=== PATIENT | male | born 1965 | race Caucasian/White ===

== ENCOUNTER 2017-11-14 13:59 | Outpatient (CLI) ==
--- NOTE | 2017-11-14 14:47 | CT ---
EXAM: Noncontrast CT head. HISTORY: Contusion of the scalp. COMPARISON: None available at the time of dictation. TECHNIQUE: Noncontrast CT head was performed with axial coronal and sagittal reconstructions. Findings: There is a hypodensity seen within the posterior right cerebellum suggestive of a previous cerebellar infarct site. There is preservation of the mejia-white differential without evidence of definitive large vessel acut e cortical infarct identified. No acute intracranial hemorrhage is identified. No midline shift is i dentified. No definitive intracranial mass lesion is identified within technical limitations of nonco ntrast CT. Bilateral white matter hypodensities are present. The basal cisterns are patent. The joseline tricles are normal in size and configuration. Limited evaluation of the skull demonstrates no visual ized lucent skull acute fractures or destructive osseous lesions identified within the visualized por tions of the skull. Partially visualized paranasal sinuses and mastoid air cells appear relatively c lear in the visualized regions. Impression: 1. No acute intracranial hemorrhage or definitive large vessel acute cortical infarct identified. 2. Bilateral white matter hypodensities present which are not specific but can be seen with chronic microvascular ischemic disease. 3. 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
--- NOTE | 2017-11-14 14:49 | CT ---
EXAM: CT cervical spine without contrast. HISTORY: Right arm pain COMPARISON: Same day CT head TECHNIQUE: Serial axial images of the cervical spine were obtained from the skull base through the l [place] apices without contrast. These were viewed in multiple planes. FINDINGS: Vertebral bodies demonstrate normal height, disc space and alignment. There is straighten ing of the cervical spine. There is an anterior disc osteophyte at C5-C6. There is mild facet arthr opathy. Posterior processes are normal. The odontoid process is unremarkable. C1 ring is intact. There is no lytic or blastic lesion. Limited views of the soft tissues are unremarkable. IMPRESSION: 1. No acute abnormality or compression fracture of the cervical spine. 2. Mild scattered degenerative disease throughout the cervical spine.
--- NOTE | 2017-11-14 15:15 | CT ---
EXAM: CT LUMBAR SPINE HISTORY: Lower back pain TECHNIQUE: CT lumbar spine without contrast. 3-mm axial sections. Coronal and sagittal reformation s. COMPARISON: None FINDINGS: General bone density appears slightly decreased. The patient has underwent previous interbody fusion hardware placement at L5/S1 with disc space fusion and decompressive laminectomy. The hardware appea rs intact with no obvious dislodgement or loosening. There is no spondylolisthesis or loss of verteb ral body height. No acute fracture is seen. There is no scoliosis. Mild to moderate bilateral josee articular sclerosis of the sacroiliac joints consistent with sacroiliitis. Pedicles appear congenita lly short. There is diffuse facet arthropathy, degenerative disc disease and ligamentum hypertrophy. These findings lead to multilevel central canal stenosis. This central stenosis is most apparent at C2/C3 and C3/C4 where there is probable moderate central canal stenosis. The central canal at L4/L5 is difficult to see secondary to artifact. There is bony spurring at this C4/C5 level which probabl y narrows the neural foramina. Correlation with MRI can be made if indicated. There is no paraspina l fluid collection seen. IMPRESSION: Postop changes of the lower spine as described. No acute fracture or spondylolisthesis. Multilevel degenerative changes of the spine.
--- NOTE | 2017-11-14 15:28 | CT ---
EXAM: CT thoracic spine without contrast HISTORY: Fall through roof. COMPARISON: CT lumbar spine and cervical spine same day. TECHNIQUE: Serial axial images of the thoracic spine were obtained without contrast. These were vie wed in multiple planes. FINDINGS: There is no acute compression fracture or subluxation. There is minimal scattered anterior disc osteophytes. The facets are unremarkable. There is no lytic or blastic lesion. Soft tissues demonstrate calcified mediastinal lymph nodes. The lungs are clear. Minimal bibasilar atelectasis. IMPRESSION: No acute abnormality, compression fracture or subluxation.
== END 2017-11-14 14:00 | disposition home or self-care (01) ==
LOC: RAD 13:59
PROVIDERS: ATTEND Family Medicine
DX: M54.5 Low back pain (principal); Z98.1 Arthrodesis status; R20.0 Anesthesia of skin; R29.898 Other symptoms and signs involving the musculoskeletal system; M79.601 Pain in right arm; M54.2 Cervicalgia; M54.6 Pain in thoracic spine; S00.03XA Contusion of scalp, initial encounter; W13.2XXA Fall from, out of or through roof, initial encounter